=== PATIENT | female | born 1990 | race Asian ===

== ENCOUNTER 2020-03-30 00:30 | Emergency (ER) | payer OTHER, SELFPAY ==
[2020-03-30 00:38] VITALS: BP 167/102; PULSE 71; RESP 18; TEMP 36.5; O2SAT 99
--- NOTE | 2020-03-30 01:21 | ED.EAR ---
HPI - Ear Problem General Chief complaint: Ear Stated complaint: clogged left ear Time Seen by Provider: 03/30/20 00:31 History of Present Illness HPI Narrative: Patient is a 29-year-old female who presents to the ER with left ear fullness. Concerned that this is similar to when she had a spider stuck in her ear. Reports she had some itching and discomfort that began earlier in the fullness increased. No pain with movement. No drainage. No fevers chills or sweats. No radiation. Related Data Allergies Allergy/AdvReac Type Severity Reaction Status Date / Time No Known Allergies Allergy Verified 02/28/20 10:32 Review of Systems ENT: Denies nasal congestion and Denies sore throat Comments: Left ear fullness. No tinnitus. Neurologic: Denies dizziness, Denies numbness and Denies weakness PMFSH Past Medical History Medical History (Updated 03/30/20 @ 01:24 by Danny Sahu MD) delivery delivered PTSD (post-traumatic stress disorder) Family History Family History Father Hypertension Mother Hypertension Social History Social History Smoking status: Never smoker Alcohol intake: never Substance use type: does not use Exam Narrative: Exam Narrative: GENERAL: Well-appearing, well-nourished, and in no acute distress. HEAD: Normocephalic, atraumatic. ENT: Mucous membranes moist. TMs normal bilaterally without evidence of effusion or infection. Ear canals free of cerumen or foreign body. No pain with manipulation of the external ear. NEURO: Alert and oriented x3. PSYCH: Normal mood and affect. Course Course Emergency Course: Recommend antihistamines help with fullness. Discharge home. Vital Signs Vital signs: Vital Signs Temperature 97.7 F 03/30/20 00:38 Pulse Rate 71 03/30/20 00:38 Respiratory Rate 18 03/30/20 00:38 Blood Pressure 167/102 H 03/30/20 00:38 Pulse Oximetry 99 03/30/20 00:38 Temperature 97.7 F 03/30/20 00:38 Pulse Rate 71 03/30/20 00:38 Respiratory Rate 18 03/30/20 00:38 Blood Pressure 167/102 H 03/30/20 00:38 Pulse Oximetry 99 03/30/20 00:38 Medical Decision Making Vital Signs Vital Signs: Vital Signs Temperature 97.7 F 03/30/20 00:38 Pulse Rate 71 03/30/20 00:38 Respiratory Rate 18 03/30/20 00:38 Blood Pressure 167/102 H 03/30/20 00:38 Pulse Oximetry 99 03/30/20 00:38 Temperature 97.7 F 03/30/20 00:38 Pulse Rate 71 03/30/20 00:38 Respiratory Rate 18 03/30/20 00:38 Blood Pressure 167/102 H 03/30/20 00:38 Pulse Oximetry 99 03/30/20 00:38 Discharge Plan Discharge Clinical Impression: Ear pain, left Patient Disposition: Home, Self-Care Condition: Stable Instructions: Earache (ED) Additional Instructions: Return the ER if you have chest pain or shortness of breath, you cannot keep down food or water, you have severe dizziness, or you have increasing pain in your ear. Take antihistamines for improvement of your symptoms. Prescriptions: New cetirizine [Zyrtec] 10 mg tablet 10 mg PO DAILY Qty: 14 RF: 0 No Action losartan 25 mg tablet 25 mg PO DAILY Qty: 90 RF: 1 Follow-up/Referrals: Yuliana José MD [Primary Care Provider] - 1 Week
[2020-03-30 01:37] VITALS: BP 129/84; PULSE 82; RESP 20; O2SAT 98
== END 2020-03-30 01:40 | disposition home or self-care (01) ==
PROVIDERS: Emergency Provider Emergency Medicine; PCP Family Medicine
DX: H92.02 Otalgia, left ear (principal)
CPT/HCPCS: 99283

== ENCOUNTER 2020-04-08 03:36 | Emergency (ER) | payer OTHER, SELFPAY ==
[2020-04-08] VITALS (16 sets, daily range): BP systolic 107–179; BP diastolic 60–108; PULSE 55–92; RESP 9–22; TEMP 35.7; O2SAT 98–100
--- NOTE | ~2020-04-08 | XR_ITS ---
EXAMINATION: XR chest 2V 04/08/2020 06:06 INDICATION: Chest pain PROCEDURE: PA and lateral views of the chest COMPARISON: No prior studies for comparison. FINDINGS: The lungs are clear. The cardiomediastinal silhouette is within normal limits. There are no pleural effusions. There is no pneumothorax suspected. Prominent left nipple shadow. IMPRESSION: 1: NO ACUTE CARDIOPULMONARY DISEASE. Reviewed, dictated and finalized at location A. [facility]
--- NOTE | 2020-04-08 03:46 | ECG_ITS ---
Measurements Intervals [place] Rate: 62 P: 53 CA: 168 QRS: 60 QRSD: 76 T: 34 QT: 399 QTc: 408 Interpretive Statements SINUS RHYTHM BASELINE ARTIFACT- I, II, III, AVR, AVL, AVF, V1 NORMAL ECG Electronically Signed On 04-08-2020 7:17:33 [employer]INTENA[employer]CE [employer]LECT[employer]ICIAN by Santiago Russo D.O.
[2020-04-08 03:57] LABS: Basophils Absolute Auto 0.1 K/mm3 (0.0-0.1); Basophils Percent Auto 0.4 % (0.2-1.2); Eosinophils Absolute Auto 0.1 K/mm3 (0-0.3); Eosinophils Percent Auto 1.1 % (0-4.4); Hematocrit 44.7 % (37.0-47.0); Hemoglobin 15.1 g/dL (12.0-15.0); Immature Granulocyte Absolute 0.05 K/mm3 (0.00-0.031); Immature Granulocyte Percent A 0.4 % (0-0.5); Lymphocytes Absolute Auto 3.47 K/mm3 (0.9-3.2); Lymphocytes Percent Auto 28.1 % (18.3-44.2); Mean Corpuscular HGB Conc 33.8 g/dl (32-36); Mean Corpuscular Hemoglobin 30.3 pg (26-34); Mean Corpuscular Volume 89.8 fl (80-100); Mean Platelet Volume 10.6 fl (7.4-10.4); Monocytes Absolute Auto 0.5 K/mm3 (0.1-0.6); Monocytes Percent Auto 3.6 % (2.6-8.5); Neutrophils Absolute Auto 8.2 K/mm3 (1.3-6.7); Neutrophils Percent Auto 66.4 % (45.5-73.1); Platelet Count Result 228 k/mm3 (150-375); Red Blood Count 4.98 M/mm3 (4.2-5.4); Red Cell Distribution Width 12.9 % (11.5-14.5); White Blood Count 12.4 K/mm3 (4.5-10.0)
--- NOTE | 2020-04-08 04:00 | ED.CHESTPAIN ---
HPI - Chest Pain General Chief Complaint: Chest Pain <Corrine Waddell MD - Last Filed: 04/11/20 12:35> Stated Complaint: hard chest pains. woke with left arm numb. <Corrine Waddell MD - Last Filed: 04/11/20 12:35> Time Seen by Provider: 04/08/20 03:44 <Corrine Waddell MD - Last Filed: 04/11/20 12:35> Source: patient <Corrine Waddell MD - Last Filed: 04/11/20 12:35> Mode of arrival: ambulatory <Corrine Waddell MD - Last Filed: 04/11/20 12:35> Limitations: no limitations <Corrine Waddell MD - Last Filed: 04/11/20 12:35> History of Present Illness HPI narrative: This patient is 29 year old female with history of hypertension, PTSD who presents for evaluation of chest pain. She reports she woke up 2 hours ago and she uvaldo some mild discomfort. She also noticed tingling and numbness to her left arm. She states she was sleeping on her left arm so she thought that was the cause of her tingling. She noticed also that she was having left upper sternal chest pain. This pain is described intermittent stabbing pain. This pain seems to be worse when she get up. She reports mild nausea and lightheaded. She denies cough, sob, fever, chills. She reports she also noticed tingling to bilateral arms. Her numbness and tingling have completely resolved. She denies having any lower extremity complaints. She took a baby aspirin at home prior to arrival. She reports she has similar symptoms when she have elevated BP but she has never had chest pain before. <Corrine Waddell MD - Last Filed: 04/11/20 12:35> Related Data Allergies/Adverse Reactions: Allergies Allergy/AdvReac Type Severity Reaction Status Date / Time No Known Allergies Allergy Verified 04/08/20 03:50 <Corrine Waddell MD - Last Filed: 04/11/20 12:35> Review of Systems Review of Systems: All systems reviewed & are unremarkable except as noted in HPI and below <Corrine Waddell MD - Last Filed: 04/11/20 12:35> [facility] Past Medical History Medical History: Medical History (Updated 04/09/20 @ 00:00 by Background Dayudelkaon) delivery delivered PTSD (post-traumatic stress disorder) <Corrine Waddell MD - Last Filed: 04/11/20 12:35> Family History Family History: Family History Father Hypertension Mother Hypertension <Corrine Waddell MD - Last Filed: 04/11/20 12:35> Social History Social History: Social History Smoking status: Never smoker Alcohol intake: never Substance use type: does not use <Corrine Waddell MD - Last Filed: 04/11/20 12:35> Exam Narrative: Exam Narrative: GENERAL: well-nourished, mild distress due to pain, HEAD: Normocephalic, atraumatic EYES: PERRLA and EOMI, conjunctiva clear without discharge THROAT:Mucous membranes moist, Oropharynx normal without erythema, exudate, peritonsillar swelling or fluctuance NECK: Supple, without lymphadenopathy or mass RESPIRATORY: No respiratory distress, Airway patent, Respirations non-labored, Clear to auscultation without rales, rhonchi or wheeze; reproducible tenderness to left upper chest HEART: Regular rate and rhythm. No murmur heard. Normal peripheral pulses. ABDOMEN: Soft, nontender, nondistended, normal active bowel sounds. No masses. No rebound or guarding, No organomegaly. EXTREMITIES: No edema, normal strength with full range of motion. SKIN: Warm, dry, normal color without rash NEURO: Alert and oriented x3. CN 2-12 grossly intact. No focal deficits. PSYCH: Normal mood and affect. <Corrine Waddell MD - Last Filed: 04/11/20 12:35> Course Reevaluation(s) Reevaluation #1: PAtient reports her sharp chest pain has resolved. She does not have any numbness or tingling. <Corrine Waddell MD - Last Filed: 04/11/20 12:35> Assumed care from Dr. Waddell pending repeat Troponin. <Jorge
[2020-04-08] MEDS: LORazepam INJ (*CRX) 2 MG/ML VIAL 0.5 MG IV PUSH (04:03)
[2020-04-08 04:12] LABS: Anion Gap 5 mmol/L (8-16); Blood Urea Nitrogen 8 mg/dL (7-17); Calcium 8.5 mg/dL (8.4-10.2); Carbon Dioxide 26 mmol/L (22-30); Chloride 106 mmol/L (98-107); Estimated CRCL calculation 88 ml/min; Estimated Glomerular Filt Rate > 60; Glucose 89 mg/dL (65-105); Sodium 137 mmol/L (137-145)
[2020-04-08 04:24] LABS: Troponin I < 0.012 ng/mL (0.000-0.034)
[2020-04-08 04:42] LABS: INR 1.1; Partial Thromboplastin Time 29.3 SECONDS (22.3-36.8); Prothrombin Time 14.4 Seconds (11.1-14.7)
[2020-04-08 04:48] LABS: D Dimer 0.39 ug/mL (<0.48)
[2020-04-08] MEDS: KETOROLAC 15 MG/ML VIAL (*BKC) IV PUSH (05:20)
[2020-04-08 07:11] LABS: Troponin I < 0.012 ng/mL (0.000-0.034)
== END 2020-04-08 08:23 | disposition home or self-care (01) ==
PROVIDERS: Emergency Provider General Practice; PCP Family Medicine
DX: R07.2 Precordial pain (principal); I10 Essential (primary) hypertension
CPT/HCPCS: 36415; 71046; 80048; 84484; 85025; 85380; 85610; 85730; 93005; 96374; 96375; 99284; J1885; J2060

== ENCOUNTER → 2020-11-20 02:22 | Outpatient (CLI) | payer OTHER, SELFPAY ==
[2020-11-21 15:31] LABS: SARS-CoV-2 RNA PCR Positive
== END ==
PROVIDERS: PCP Family Medicine; Visit Provider Physician Assistant
DX: U07.1 COVID-19 (principal); R05 Cough
CPT/HCPCS: C9803; U0003; U0005

== ENCOUNTER 2023-09-17 14:08 | Outpatient (CLI) | payer OTHER, SELFPAY ==
--- NOTE | ~2023-09-17 | XR_ITS ---
EXAM: XR lumbar spine min 4V DATE: 09/17/2023 14:35 HISTORY: M54.50 - Low back pain, unspecified . COMPARISON: None available. FINDINGS: 5 nonrib-bearing lumbar-type vertebral bodies. Rudimentary disc at S1-2. Pedicles intact. Normal vertebral body alignment. Vertebral body heights preserved. Minimal marginal osteophytosis at L3-4. Mild disc space narrowing at L4-5. No pars defect. Mild bilateral facet sclerosis at L5-S1. No fracture or dislocation. IUD over the pelvis. IMPRESSION: Mild degenerative disease at L4-5 and L5-S1. Mild facet arthropathy at L5-S1. Reviewed, dictated and finalized at location K.
== END 2023-09-17 14:09 | disposition home or self-care (01) ==
LOC: ANHIMG 14:10
PROVIDERS: PCP Family Medicine; Visit Provider Family Medicine
DX: M54.50 Low back pain, unspecified (principal); M51.36 Other intervertebral disc degeneration, lumbar region; M12.88 Other specific arthropathies, not elsewhere classified, other specified site
CPT/HCPCS: 72110